=== PATIENT | female | born 1955 | race Caucasian/White ===

== ENCOUNTER → 2017-07-03 11:15 | Outpatient (CLI) | payer BC, SELFPAY ==
[2017-06-14 10:58] VITALS: BMI 27.9
--- NOTE | 2017-07-03 11:20 | BD_ITS ---
STUDY: DUAL ENERGY X-RAY ABSORPTIOMETRY / DXA REASON FOR EXAM: Female, 62 years old. History of breast cancer. Loss of height. TECHNIQUE: Bone Mineral Density (BMD) measurements of lumbar spine and bilateral hips were obtained. COMPARISON: None. FINDINGS: Lumbar Spine (L1-L4): g/cm2 (1.382) / T-score (1.5) / Z-score (2.9) Findings are suggestive of normal bone density with a low fracture risk. Left Femur Total: g/cm2 (0.800) / T-score (-1.6) / Z-score (-0.6) Left Femoral Neck: g/cm2 (0.817) / T-score (-1.6) / Z-score (-0.3) Right Femur Total: g/cm2 (0.964) / T-score (-0.3) / Z-score (0.7) Right Femoral Neck: g/cm2 (1.082) / T-score (0.3) / Z-score (1.6) BD/Dexa Bone Density Study IMPRESSION: The patient is considered osteopenic as outlined below according to World Jonathan Organization (WHO) criteria with a moderate fracture risk. Reference Information: The T-score is the number of standard deviations above or below the standard which is normal for young adults at their peak bone mineral density. The World Health Organization (WHO) interprets the T-scores as follows: Above -1 Normal bone density Between -1 and -2.5 Osteopenia Equal to / or below -2.5 Osteoporosis As a practical clinical guideline, osteopenia may be graded as follows: Mild -1 through -1.5 Moderate -1.6 through -2.0 Severe -2.1 through -2.4 The Z-score is the number of standard deviations above or below age-matched controls. A Z-score of less than -1.5 would be considered abnormal. References: 1. NIH Osteoporosis and Related Bone Diseases http://www.osteo.org 2. International Society for Clinical Densitometry http://www.iscd.org 3. National Osteoporosis Foundation http://www.nof.org Electronically Signed: Nelson Saucedo MD at 14:17 EDT Tel [phone], Service support ,
== END ==
PROVIDERS: Family Provider Internal Medicine; PCP Internal Medicine; Visit Provider Internal Medicine Hematology & Oncology
DX: Z78.0 Asymptomatic menopausal state (principal); C50.912 Malignant neoplasm of unspecified site of left female breast; C77.9 Secondary and unspecified malignant neoplasm of lymph node, unspecified
CPT/HCPCS: 77080

== ENCOUNTER 2017-07-30 08:30 | Outpatient (RCR) | payer BC, SELFPAY ==
[2017-06-14 10:58] VITALS: BMI 27.9
--- NOTE | 2017-06-20 13:47 | HP.PTEVAL ---
Patient's Visit Information SHY LING is a 62 year old F referred to Physical Therapy by Gabriella Munoz DR.[email or web address] with a diagnosis of MALIGNANT NEOPLASM OF LEFT BREAST. METASTATIC CANCER TO LYMPH NODES LEFT.. Date of Evaluation: 06/20/17 Physical Therapist: Shantelle Preston - Visit Plan Frequency: 1x/Week Duration: 1 Week Plan: TRANSFER OF CARE TO OT/LYMPHFORMERLY [facility]. WILL HAVE CASE CONFERENCE WITH YVES IN OT. 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 METASTATIC CANCER TO AXILLARY LYMPH NODES. S/P PARTIAL MASTECTOMY, LEFT. Work/Leisure: [employer]ED [employer]IST WORKING SELF EMPLOYEED ABOUT 40 OR SO HOURS A WEEK. 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 Disability: NO. Present symptoms: LEFT LATERAL BREAST AND RIGHT BREAST PAIN RANGING 0-2/10. Present since: DX'D NOV 2016. Pain Scale: WORST 2/10, LEAST 0/10. Currently: 0/10. Worse: REACHING, LIFTING, CHANGING CAT LITTER, EMPTYIING THE LOSS CLAIM CLERK. Better: SITTING DOWN WITH PILLOW UNDER ARM. Disturbed sleep: NO. Previous history/Previous treatment: UNREMARKABLE. Dizziness: NO. Tinnitis: NO. Nausea: NO. Difficulty Swollowing: NO. Gait: NORMAL. Accidents: 2001 - SEVERED RIGHT QUAD FALLING DOWN STEPS. Unexplained weight loss: NO. Imaging: MOST RECENT IMAGING WAS AN MRI OF BOTH BREASTS ABOUT MAY 06 AFTER CHEMO FINISHED - CANCER WAS RESOVED AT THAT POINT. PMH: MILD DIABETIC POSSIBLY. Recent major surgery: S/P LEFT PARTIAL MASECTOMY/LUMPECTOMY WITH SHOSHANA BREAST RECONSTRUCTION MAY 17 2017. CHEMO FOR MONTHS PRIOR TO SURGERY. - Objective Sitting Posture: POOR WITH FORWARD HEAD AND ROUNDED SHOULDERS. PATIENT ABLE TO ACTIVELY NEARLY FULLY CORRECT WITH CUEING. Active Correction of posture: BETTER. Other Observations: INDEP GAIT INTO PT WITHOUT ANY ASSISTIVE DEVICES OR GROSS DEVIATIONS NOTED. ABLE TO TRANSFER INDEP'LY FROM SIT TO STAND WITHOUT UE ASSIST. Motor deficit: RIGHT UE ROM GROSSLY 4/5 WITH MMT. LEFT GROSSLY 4/5 WITH MMT EXCEPT LEFT SHOULDER: FLEX - 3-/5, ABD - 3-/5, IR 3+/5, ER 4-/5. Sensory deficit: MILD DECREASED LIGHT TOUCH SENSATION OF LEFT TRICEPT REGION COMPARED TO RIGHT. ROM deficit: RIGHT UE - WFL, LEFT SHOULDER 130 DEG AROM LEFT SHOULDER FLEX. 112 DEG AROM ABD. IR/ER - WFL. LEFT SHOULDER PASSIVE FLEX IN SUPINE = 160 DEG, ABD = 153 DEG WITH REPORTS OF END-RANGE STRETCH BUT NOT C/O PAIN WITH TESTING. Cervical Mvmt Loss: CERVICAL ROM IS MINIMALLY LIMITED ALL PLANES WITHOUT C/O INCREASED PAIN WITH TESTING BUT RETRACTION HAS MODERATE LIMITATION. Postural strength: POOR. OTHER: ALL OF PATIENTS INCISIONS LOOK TO BE WELL HEALING WITHOUT ANY SIGNS OF INFECTION. THIS PT CALLED AND SPOKE WITH THE REFERRING DOCTORS OFFICE. I REQUESTED AN OT ORDER AND THEY AGREED STATING THERE INTENT WAS FOR HER TO BE SEEN FOR LYMPHADEMA. VERBAL ORDER REC'D TO GO AHEAD WITH PT EVAL WELL. PATIENT ALSO AGREEABLE TO PT EVAL TODAY WITH KNOWLEDGE OF NEED FOR OT CONSULT TOO. THIS PT RECOMMENDS TRANSFER OF CARE TO OT AT THIS TIME. - Goals Goal 1:: SUCCESSFUL COMPLETION OF PT EVAL - Rehabilitation Potential Rehabilitation Potential: Good - Anticipated Interventions Thank you for the opportunity to evaluate your patient. For Medicare and Medicare HMO plans, please review the plan of care and approve it. It will need to be FAXED BACK to us at [phone] for Medicare purposes. Please let me know if there are questions or concerns regarding this plan of care. Physician Signature: Date:
--- NOTE | 2017-06-20 13:49 | HP.PT.NRP ---
HP - Discharge Summary (1) - Patient Information SHY LING was seen in my office for initial evaluation on 06/20/17. The following Plan of Care was established for this patient: Initial Frequency: 1x/Week Initial Duration: 1 Week This patient was last seen in our office . Pertinent comments regarding their Physical therapy will appear below: THIS PATIENTS CARE IS BEING TRANSFERRED TO OT/LYMPHADEMA CARE AT THIS TIME. PATIENT AGREEABLE. At this point I will be discontinuing this patient from physical therapy. I would be happy to see this patient again in the future if found appropriate by the physician. Thank you! Shantelle Preston
--- NOTE | 2017-07-01 15:26 | HP.OTEVAL ---
Patient's Visit Information SHY LING is a 62 year old F, referred to Occupational Therapy by Gabriella Munoz DR.MMURRA2, with a diagnosis of Left brast Malignant neoplasm of central portion. Date of Evaluation: 06/27/17 Occupational Therapist: Cecily Resendez, LOY/Thomas, CHT - Subjective Subjective: Diagnosis: MALIGNANT NEOPLASM OF CENTRAL PORTION OF LEFT BREAST, ESTROGEN RECEPTOR POSITIVE. METASTATIC CANCER TO AXILLARY LYMPH NODES. S/P PARTIAL MASTECTOMY, LEFT. 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 Disability: NO. Present symptoms: LEFT LATERAL BREAST AND RIGHT BREAST PAIN RANGING 0-2/10. Present since: DX'D NOV 2016. Pain Scale: WORST 2/10, LEAST 0/10. Currently: 0/10. Worse: REACHING, LIFTING, CHANGING CAT LITTER, EMPTYIING THE BUSINESS DEVELOPMENT PROFESSIONAL. Better: SITTING DOWN WITH PILLOW UNDER ARM. Disturbed sleep: NO. Previous history/Previous treatment: UNREMARKABLE. Accidents: 2001 - SEVERED RIGHT QUAD FALLING DOWN STEPS. Unexplained weight loss: NO. Imaging: MOST RECENT IMAGING WAS AN MRI OF BOTH BREASTS ABOUT MAY 06 AFTER CHEMO FINISHED - CANCER WAS RESOVED AT THAT POINT. PMH: MILD DIABETIC POSSIBLY. Recent major surgery: S/P LEFT PARTIAL MASECTOMY/LUMPECTOMY WITH SHOSHANA BREAST RECONSTRUCTION MAY 17 2017. CHEMO FOR MONTHS PRIOR TO SURGERY. - Pain left UE 1 Pain Intensity Range: 0, 2 - Objective Objective/Observation: pt demo with good sitting posture- no demo left UE edema noted - ROM Shoulder: R/L WNL Elbow: R/L WNL Forearm: R/L WNL Wrist: R/L WNL - Lymphedema (Circumferential Measure) MCP: R/L 28cm/27cm Wrist: R/L 14.5cm/14.5cm Lower forearm: R/L 14.5cm/15cm Largest forearm: R/L 20cm/20.5cm Elbow: R/L 22cm/22.5cm Largest humerus: R/L 29cm/29cm Axcillary: R/L 29cm/30.5cm - Sensation Sensation Comments: minimal tingling in fingers in toes- D/T chemo - DASH-Disabilities of Arm, Shoulder& Hand DASH Sum: 58 - Goals Demonstrate adequate knowledge skin care/prec by 2nd week: Yes Demonstrate adequate knowledge therapeutic exercises by d/c: Yes Select approp compression garment w/donning/care/wear by d/c: Yes - Rehabilitation General Assessment: Diagnosis: MALIGNANT NEOPLASM OF CENTRAL PORTION OF LEFT BREAST, ESTROGEN RECEPTOR POSITIVE. METASTATIC CANCER TO AXILLARY LYMPH NODES. S/P PARTIAL MASTECTOMY, LEFT. pt demo need of lymphedema ed. and fitting for scar mtg. pt was ed. on compression garment- 20-30 mmHg for travel and would benefit from PRE. Rehabilitation Potential: Excellent - Anticipated Interventions Anticipated Interventions: ICAM Protocol, Strengthening, Scar Care, Triggerpoint Release, Modalities, Ergonomic Education, Education re Diagnosis, Education re Life-long lymphedema Management, Education re Skin Care and Precautions, Education re Correct Donning Tech,Care&Wearing Sched Comp Garments - Visit Plan Frequency: 1-2x /Week Duration: 4 Weeks General Plan: pt as ed. on compression garment 20-30mmHg- followed with PRE- for pt to gain functional endurence/strength to peform BADLS and IADLS TEXT: Thank you for the opportunity to evaluate your patient. For Medicare and Medicare HMO plans, please review the plan of care and approve it. It will need to be FAXED BACK to us at [phone] for Medicare purposes. Please let me know if there are questions or concerns regarding this plan of care. Physician Signature: Date:
--- NOTE | 2017-11-18 15:30 | HP.OT.NRP ---
HP - Discharge Summary - Patient Information SHY LING was seen in my office for initial evaluation on 06/27/17. The following Plan of Care was established for this patient: Initial Frequency: 1-2x /Week Initial Duration: 4 Weeks Plan: cont with PRE - Anticipated Interventions Anticipated Interventions: ICAM Protocol, Strengthening, Scar Care, Triggerpoint Release, Modalities, Ergonomic Education, Education re Diagnosis, Education re Life-long lymphedema Management, Education re Skin Care and Precautions, Education re Correct Donning Tech,Care&Wearing Sched Comp Garments This patient was last seen in our office 07/30/17. Pertinent comments regarding their Occupational therapy will appear below: PT seen three visits to ed. pt on core, UB and posture ex. pt last seen 07-30-17. pt has not scheduled any further apts at this time and due to time laps pt d/c. At this point I will be discontinuing this patient from occupational therapy. I would be happy to see this patient again in the future if found appropriate by the physician. Thank you! Cecily Resendez, OTR/L, CHT
== END 2017-07-30 19:00 | disposition home or self-care (01) ==
LOC: OT 08:30
PROVIDERS: Family Provider Internal Medicine; PCP Internal Medicine
DX: C50.112 Malignant neoplasm of central portion of left female breast (principal); Z17.0 Estrogen receptor positive status [ER+]; C77.3 Secondary and unspecified malignant neoplasm of axilla and upper limb lymph nodes; Z90.12 Acquired absence of left breast and nipple
CPT/HCPCS: 97110; 97162; 97166; 97530

== ENCOUNTER → 2018-03-24 13:01 | Outpatient (CLI) | payer BC, OTHER, SELFPAY ==
[2017-06-14 10:58] VITALS: BMI 27.9
[2018-03-11 14:03] VITALS: BMI 25.2
--- NOTE | 2018-03-24 13:06 | BI_ITS ---
MAMMOGRAPHY - BILATERAL DIAGNOSTIC REASON FOR EXAM: Female, 63 years old. Palpable abnormality along the surgical scar in the right breast. PERTINENT HISTORY: Personal history of breast cancer. Prior left lumpectomy and breast reduction surgery. TECHNIQUE: Digital bilateral breast markel (3D mammographic acquisition) in the CC and MLO projections. 2-D mediolateral oblique (MLO) and craniocaudad (CC) views of both breasts were obtained. CAD: Full Field Digital Mammography with Computer Added Detection was performed. COMPARISON: Comparison is made with prior study dated November 02, 2016. FINDINGS: Breast Composition: There are scattered areas of fibroglandular density. There are no dominant masses or suspicious calcifications. Since prior study, the patient underwent a left lumpectomy with removal of the subareolar nodular mass. No new mass lesion or cluster of microcalcification is seen. No other significant abnormalities are identified. BI/DIAG MAMM W/CAD, BILAT IMPRESSION: Status post left lumpectomy. No acute abnormality is seen. ASSESSMENT CATEGORY: BIRADS Category 2: Benign. A letter regarding these results will be sent to the patient by the facility within 30 days. Approximately 10% of breast cancers are not detected by mammography. A normal mammogram should not delay biopsy of a clinically suspicious abnormality. Electronically Signed: Nelson Saucedo MD at 14:46 EST Tel [phone], Service support ,
--- NOTE | 2018-03-24 14:24 | US_ITS ---
STUDY: ULTRASOUND BREAST - RIGHT REASON FOR EXAM: Female, 63 years old. Palpable lump in the right breast. TECHNIQUE: Axial and longitudinal images of the RIGHT breast were performed with a high resolution ultrasound transducer. COMPARISON: Comparison is made with prior mammogram done earlier in the day. FINDINGS: RIGHT Breast: The inferior lateral aspect of the right breast was examined. There is a homogeneous fibroglandular tissue. No solid or cystic mass lesion is seen. US/Breast Limited Unilateral IMPRESSION: No sonographic abnormality is seen. ASSESSMENT CATEGORY: BIRADS Category 1: Negative. A letter regarding these results will be sent to the patient by the facility within 30 days. Electronically Signed: Nelson Saucedo MD at 11:29 EST Tel [phone], Service support ,
== END ==
PROVIDERS: Family Provider Internal Medicine; PCP Internal Medicine; Referring Provider Internal Medicine; Visit Provider Internal Medicine
DX: N63.11 Unspecified lump in the right breast, upper outer quadrant (principal)
CPT/HCPCS: 76642; 77062; 77066; G0279

== ENCOUNTER → 2019-05-11 | Outpatient (CLI) | payer BC, SELFPAY ==
[2017-06-14 10:58] VITALS: BMI 27.9
[2018-10-14 11:44] VITALS: BMI 27.8
--- NOTE | 2019-05-11 13:13 | BI_ITS ---
MAMMOGRAPHY - BILATERAL SCREENING REASON FOR EXAM: Female, 64 years old. Routine annual screening examination. PERTINENT HISTORY: Personal history of breast cancer. Prior left lumpectomy. History of bilateral breast reduction surgery. TECHNIQUE: Digital bilateral breast jono (3D mammographic acquisition) in the CC and MLO projections. 2-D mediolateral oblique (MLO) and craniocaudad (CC) views of both breasts were obtained. CAD: Full Field Digital Mammography with Computer Added Detection was performed. COMPARISON: Comparison is made with prior examination dated March 24, 2018 and November 02, 2016. FINDINGS: Breast Composition: There are scattered areas of fibroglandular density. There are no dominant masses or suspicious calcifications. Stable postoperative changes in the central portion of the left breast. No other significant abnormalities are identified. There has been no significant change since the prior study. BI/SCREEN MAMM (CAD) W/JONO BILAT IMPRESSION: Stable bilateral screening mammogram. Yearly follow-up mammogram recommended. (A) ASSESSMENT CATEGORY: BIRADS Category 2: Benign. A letter regarding these results will be sent to the patient by the facility within 30 days. Approximately 10% of breast cancers are not detected by mammography. A normal mammogram should not delay biopsy of a clinically suspicious abnormality. [id number] Electronically Signed: Nelson Saucedo, at 15:07 EST , Service support ,
== END | disposition home or self-care (01) ==
LOC: OPBI 13:13
PROVIDERS: PCP Internal Medicine; Referring Provider Internal Medicine Hematology & Oncology; Visit Provider Internal Medicine Hematology & Oncology
DX: Z12.31 Encounter for screening mammogram for malignant neoplasm of breast (principal)
CPT/HCPCS: 77063; 77067